=== PATIENT | female | born 1965 | race Caucasian/White ===

== ENCOUNTER 2022-11-28 16:43 | Emergency (ER) | payer OTHER ==
[~2022-11-28] VITALS: Ht 162.6 cm; Wt 83.9 kg
[2022-11-28 16:49] VITALS: BP 127/90; PULSE 85; RESP 16; TEMP 97.7; O2SAT 96
--- NOTE | 2022-11-28 17:14 | NUR ---
AT EVALUATING PT.
[2022-11-28] MEDS ORDERED: HYDROmorphone PFS 2 MG/ML SYR IVP ONE ×2 (17:30→20:45)
[2022-11-28] MEDS ORDERED: ONDANSETRON 4 MG/2 ML VIAL IVP ONE (17:30)
--- NOTE | 2022-11-28 18:06 | NUR ---
US BEING PERFORMED AT BS.
[2022-11-28 18:10] LABS: BASOPHILS % (AUTO) 0.7 % (0.0-2.0); EOSINOPHILS # (AUTO) 0.2 K/uL (0-0.4); EOSINOPHILS % (AUTO) 8.1 % (0.0-4.0); HEMATOCRIT 31.4 % (36-48); HEMOGLOBIN 10.4 g/dL (12.0-16.0); LYMPHOCYTES # (AUTO) 0.9 K/uL (2.5-16.5); LYMPHOCYTES % (AUTO) 33.7 % (20.5-51.1); MEAN CORPUSCULAR HEMOGLOBIN 28 pg (27-31); MEAN CORPUSCULAR HGB CONC 33 g/dL (33-37); MONOCYTES # (AUTO) 0.4 K/uL (0.8-1.0); MONOCYTES % (AUTO) 14.4 % (1.7-9.3); NEUTROPHILS # (AUTO) 1.1 K/uL (1.8-7.7); NEUTROPHILS % (AUTO) 43.1 % (42.2-75.2); PLATELET COUNT (AUTO) 213 K/uL (140-450); RED BLOOD CELL COUNT(AUTO) 3.74 MIL/uL (4.20-5.40); RED CELL DISTRIBUTION WIDTH 14.6 % (11.6-13.7); WHITE BLOOD COUNT (AUTO) 2.5 K/uL (4.8-10.8)
[2022-11-28 18:22] LABS: C-REACTIVE PROTEIN QUANT 1.2 mg/dL (0.0-0.9)
[2022-11-28 18:25] LABS: ALBUMIN 3.2 g/dL (3.4-5.0); CARBON DIOXIDE 29.9 mmol/L (21-32); CREATININE 0.6 mg/dL (0.6-1.3); POTASSIUM 3.9 mmol/L (3.5-5.1); TOTAL BILIRUBIN 0.4 mg/dL (0.0-1.0)
[2022-11-28 18:35] LABS: PROTHROMBIN TIME 9.9 secs (10.8-13.4)
--- NOTE | 2022-11-28 18:45 | NUR ---
COVID AND FLU SAMPLES OBTAIN AND GIVEN TO LAB.
--- NOTE | 2022-11-28 18:51 | NUR ---
PT OOB TO THE RESTROOM TO OBTAIN UA SAMPLE.
--- NOTE | 2022-11-28 19:22 | NUR ---
PT REMAIN IN THE RESTROOM. ENDORSED THE PT TO JOSELYN IVEY IN STABLE CONDITION. TRANSFER OF CARE IMPLEMENTED.
[2022-11-28 19:37] LABS: APPEARANCE,URINE CLEAR (CLEAR); BILIRUBIN,URINE NEGATIVE (NEGATIVE); BLOOD, URINE NEGATIVE (NEGATIVE); COLOR,URINE YELLOW (YELLOW); LEUKOCYTE ESTERASE ,URINE 1+ (NEGATIVE); NITRITE, URINE NEGATIVE (NEGATIVE); PH,URINE 6.5 (5.0-9.0); UGLUCOSE NEGATIVE (NEGATIVE)
--- NOTE | 2022-11-28 19:45 | NUR ---
i GOT CALLED FROM RADIOLOGY, IV IS INFILTRATED. NEW IV WS INSERTED ON THE LEFT AC 18 GAUGE. PT TOLERATED
[2022-11-28 19:50] LABS: RBC,URINE 0-5 /HPF (0-5)
--- NOTE | 2022-11-28 20:22 | NUR ---
DAUGHTER AT THE BEDSIDE
--- NOTE | 2022-11-28 20:30 | NUR ---
PT IS COMPALINING ABOUT THE PAIN. NOTIFIED
[2022-11-28] MEDS ORDERED: LORazepam 1 MG TAB PO ONE (22:55)
[2022-11-28] MEDS ORDERED: MORPHINE SULFATE 4 MG/ML SYR IVP ONE (23:25)
[2022-11-28 23:50] VITALS: BP 112/65; PULSE 70; RESP 9; TEMP 98; O2SAT 98
--- NOTE | 2022-11-28 23:51 | NUR ---
Patient discharged with v/s stable. Written and verbal after care instructions given and explained. Patient verbalized understanding. Wheel Chair Assisted with to home. All questions addressed prior to discharge. Advised to follow up with PMD. PT LEFT WITH HER DAUGHTER
== END 2022-11-28 23:45 | disposition home or self-care (01) ==
LOC: MED 16:43
DX: R05.9 Cough, unspecified (principal); R06.02 Shortness of breath; M25.552 Pain in left hip; E03.9 Hypothyroidism, unspecified; F41.9 Anxiety disorder, unspecified; Z98.890 Other specified postprocedural states; Z88.1 Allergy status to other antibiotic agents; Z88.2 Allergy status to sulfonamides; Z88.8 Allergy status to other drugs, medicaments and biological substances; Z88.6 Allergy status to analgesic agent
CPT/HCPCS: 36415; 71045; 72130; 72133; 74178; 80053; 81001; 82550; 83605; 83880; 84484; 85025; 85379; 85610; 85651; 85730; 86140; 87040; 87086; 87426; 87804; 93005; 93970; 96374; 96375; 96376; 99285; J1170; J2270; J2405; Q0092; Q9967